=== PATIENT | female | born 1965 | race Caucasian/White ===

== ENCOUNTER 2017-02-03 23:00 | Inpatient (IN) | payer OTHER ==
--- NOTE | ~2017-02-03 | PN ---
Unit #: [id number] #: [id number] Patient: KAYLAN CHUNG [id number] [facility] [address] [place] [address] [id number] I MR#: [id number] NAME: KAYLAN CHUNG ROOM: [facility] Age: 51 Sex: F Admission Date: 02/04/2017 : 1965 Attending Physician: Krista Rose M.D. Admitting Physician: Krista Rose M.D. Primary Care Physician: Jaspal Gustafson PROGRESS NOTES DATE 02/08/2017 DISCUSSION Ms. Chung is a 51-year-old white female who was seen today and chart was reviewed and case was discussed with the staff. She has been anxious, withdrawn though has not shown any agitation, irritability and has been cooperative with treatment recommendations as she has been taking medications and tolerating them fairly well with no reported side effects. MENTAL STATUS EXAMINATION Middle-aged white female who was casually dressed with fair personal hygiene and appears to be in no acute distress or discomfort. She was awake and alert with intact orientation. Her mood was anxious with congruent affect. She denies any suicidal or homicidal ideation. Her insight and judgement remains slightly impaired. TREATMENT PLAN 1. Will continue on current treatment protocol and will monitor her response and make further adjustments as needed. 2. Will continue to follow up. Dictated by... Krista Rose M.D. IAA/amauri TD: 02/08/2017 19:46 JOB #: [id number] [facility] PROGRESS NOTES Page 1 of 1 X Krista Rose MD PROGRESS NOTE
--- NOTE | ~2017-02-03 | HP ---
Unit #: [id number] #: [id number] Patient: KAYLAN BECKER [id number] [place] [address] [id number] I MR#: [id number] NAME: KAYLAN BECKER ROOM: P177 Age: 51 Sex: F Admission Date: 02/04/2017 : 1965 Attending Physician: Krista Rose M.D. Admitting Physician: Krista Rose M.D. Primary Care Physician: Jose A Townsend M.D. HISTORY AND PHYSICAL HISTORY OF PRESENT ILLNESS Kaylan is a 51 year old admitted to [facility] because of her continued abuse of alcohol. PAST MEDICAL HISTORY 1. Long history of alcohol abuse. 2. History of illicit substance abuse. 3. History of withdrawal seizures, benzodiazepines. PAST SURGICAL HISTORY 1. Right foot. 2. x2. 3. Tummy tuck. ALLERGIES Antihistamines. SOCIAL HISTORY Smokes one pack per day. Drinks alcohol on occasion. Has a history of illicit substance abuse to include snorting amphetamines and abusing opioids and benzodiazepines. FAMILY HISTORY Medically noncontributory. REVIEW OF SYSTEMS CONSTITUTIONAL: No fever or chills. HEENT: Denies any sore throat, ear pain or runny nose. CARDIOVASCULAR: Denies chest pain, irregular heart rhythm or palpitations. CHEST: Denies shortness of breath or cough. No hemoptysis. GASTROINTESTINAL: Denies nausea, vomiting, diarrhea or chronic constipation. ENDOCRINE: Denies history of increased thirst or urination. No recent significant weight loss or gain. GENITOURINARY: Denies dysuria, frequency, or hematuria. SKIN: Denies any rashes. HEMATOLOGIC: Denies history of increased bleeding or bruising. MUSCULOSKELETAL: Denies any hot, swollen joints. No generalized muscle pain. NEUROLOGIC: Denies problems with vision or speech. No frequent, severe headaches. No numbness, tingling or weakness in any extremities. Denies loss of bladder or bowel control. Unit #: [id number] #: [id number] Patient: KAYLAN BECKER CURRENT MEDICATIONS 1. Detox protocol 2. Remeron 15 mg q.h.s. 3. BuSpar 10 mg b.i.d. 4. Aspirin 81 mg q day PHYSICAL EXAMINATION GENERAL: Alert, appearing much much older than her stated age of 51, no apparent distress. VITAL SIGNS: Blood pressure 100/66, heart rate 80, respirations 16, temperature 98.6. WEIGHT: 133 pounds. HEIGHT: 5'4". SKIN: Warm and dry without rash or lesion. HEENT: Normocephalic. TMs not viewed. Oral and nasal passages clear. Conjunctivae clear. Pupils equal, round and reactive to light and accommodation. Extraocular movements intact. NECK: Supple without lymphadenopathy or thyromegaly. HEART: Regular rate and rhythm without murmur. LUNGS: Clear. ABDOMEN: Soft, nontender. : Not done. EXTREMITIES: No evidence of cyanosis, clubbing or edema. Moves all extremities without focal deficit. NEUROLOGICAL: Grossly within normal limits. Cranial Nerves: II: Visual temple are intact. III, IV AND : Extraocular movements are intact. Pupils are equal, round and reactive to light. V: Facial sensation is grossly normal. VII: Facial movements and expression are normal. VIII: Auditory acuity grossly intact. IX, X: Uvula is midline. Phonation is normal. XI: Patient shrugs shoulders and turns head normally. XII: Tongue protrudes in the midline. Sensory and Motor Function: Sensory and motor sensation is grossly normal. Motor: moves all extremities well. Coordination: Gait is normal. Deep Tendon Reflexes: Intact. IMPRESSION Psychiatric admission RECOMMENDATIONS PSYCHIATRIC: Per psychiatrist. MEDICAL: I see no contraindications to participating in facility's activities. MEDICAL PROGNOSIS Good. MEDICAL CONDITION Stable. Dictated by... Raquel KingANeel for Unit #: [id number] #: [id number] Patient: KAYLAN BECKER Jaspal Edwards/ann TD: 02/04/2017 21:08 JOB #: [id number] HISTORY AND PHYSICAL Page 1 of 1 X Mayra Zacarias HISTORY AND PHYSICAL
--- NOTE | ~2017-02-03 | PA ---
Unit #: [id number] #: [id number] Patient: KAYLAN CHUNG [id number] [facility] [address] [place] [address] [id number] I MR#: [id number] NAME: KAYLAN CHUNG ROOM: P177 Age: 51 Sex: F Admission Date: 02/04/2017 : 1965 Date of Assessment: 02/04/2017 Attending Physician: Krista Rose M.D. Admitting Physician: Krista Rose M.D. Primary Care Physician: Jose A Townsend M.D. PSYCHIATRIC ASSESSMENT DATE OF SERVICE 02/04/2017. IDENTIFYING DATA Ms. Chung is a 51-year-old white female, who is a resident of [place], [place], and was self-referred to the hospital on voluntary basis. CHIEF COMPLAINT "I'm having a nervous breakdown." The patient reports that she is living with a male who took the medication. HISTORY OF PRESENT ILLNESS Ms. Chung is a 51-year-old white female with history of mood disorder, who was brought to the hospital stating that she is having a nervous breakdown and that she is living with a male who took her medications away from her and the patient reports witnessing her being killed in front of her approximately 4 years ago and reports suicidal ideation, reports she wants to drown herself because "I'm trying to not feeling good." She also stated "I'm losing my mind." The patient reports that she is not sleeping and just wants to sleep and reports taking EPO out on individual with whom she was staying with and reports increasing depression, anxiety, agitation, irritability, and was seen to be quite histrionic and animated and was difficult to be interrupted and was moving from one subject to another and that she was noticed to be coming out and talking to other patients on the unit and telling her stories and trying to get sympathies and has been telling everyone that she used to have a beautiful house and a floor where then she used to have everything and then she ended up losing everything and now tells me that she needs to have a Klonopin or Ativan to calm her nerves down and that as soon as she takes it within minutes, she calms down and has apparently become addicted to benzodiazepine, however, she was reporting suicidal ideations with a plan and as such, recommendation for inpatient level of care for safety and stabilization was made. SUBSTANCE ABUSE HISTORY The patient does have extensive history of substance abuse and reports starting with cannabis at the age of 12 and since then, she has done cannabis, alcohol, methamphetamines, and benzodiazepines, and has done methadone in the past as well. However, more recently it appears that she has been using quite a bit of benzodiazepines and it was noticed that she was unable to answer multiple questions, asked about substance abuse and her blood alcohol level was 0 at the time of presentation. She admitted Unit #: [id number] #: [id number] Patient: KAYLAN CHUNG to using one line of methamphetamine in the last 8 hours and reports being prescribed Klonopin and has not been able to take within the last few days and previous assessment indicate that she has history of alcohol use and reports cirrhosis of the liver which the patient denies at current assessment and was unclear about her sobriety, but at the same time was exhibiting significant withdrawal symptoms. PAST PSYCHIATRIC HISTORY The patient has history of multiple inpatient chemical dependency and psychiatric treatment as [facility], at [facility], and has been to [facility] for chemical dependency rehab level of care. However, currently she does not appear to be seeing a psychiatrist, though her primary care physician has been prescribing her Klonopin up to t.i.d. PAST MEDICAL HISTORY The patient's medical history is significant for hepatitis C, history of seizures, coronary artery disease. ALLERGIES Antihistamines. PERSONAL AND SOCIAL HISTORY A 51-year-old white female, who reports that she is single, unemployed, and has unstable housing. MENTAL STATUS EXAMINATION Middle-aged white female who was casually dressed with fair personal hygiene, appears to be in no acute distress or discomfort. She was awake and alert on interaction with intact orientation. Her mood was anxious and depressed with a congruent affect. Her speech was slow and restricted in content. Her thought processes were disorganized with some looseness of associations and suicidal ideations. Her insight and judgment remain significantly impaired. DIAGNOSTIC IMPRESSION Psychiatric: Major depressive disorder, recurrent, moderate, without psychotic features; benzodiazepine dependence, moderate; alcohol abuse, moderate; methamphetamine abuse, moderate. Medical: Hepatitis C, history of seizures, coronary artery disease. Stressors: Moderate psychosocial stressors. TREATMENT PLAN 1. The patient has presented with history of mood disorder and substance abuse and has been decompensating and will need inpatient hospitalization for safety and stabilization. We will start her back on her home medications. We will adjust the medications and monitor response. 2. Supportive therapy was provided to the patient. 3. Safe, structured, and nourishing environment will be provided. ESTIMATED LENGTH OF STAY 5 to 7 days. ABILITY TO HELP SELF Limited. WILLINGNESS TO HELP SELF The patient appears to be willing to help self. Unit #: [id number] #: [id number] Patient: KAYLAN CHUNG 1. Communicative. 2. Cooperative. PROBLEMS 1. Chronic dysphoric symptoms. 2. Poor social support system. DISCHARGE CRITERIA This will be contingent upon the patient's ability to show resolution of her depression and anxiety and her ability to stay safe and sober, particularly after discharge from the hospital. Dictated by... Jaspal Mayfield/kelly TD: 02/05/2017 00:55 JOB #: [id number] PSYCHIATRIC ASSESSMENT Page 1 of 1 X Krista Rose MD PSYCHIATRIC ASSESSMENT
--- NOTE | ~2017-02-03 | DS ---
Unit #: [id number] #: [id number] Patient: KAYLAN CHUNG [id number] [facility] [place] [address] [id number] I MR#: [id number] NAME: KAYLAN CHUNG ROOM: P177 Age: 51 Sex: F Admission Date: 02/04/2017 : 1965 Discharge Date: 02/10/2017 Attending Physician: Krista Rose M.D. Primary Care Physician: Jose A Townsend M.D. DISCHARGE SUMMARY IDENTIFYING DATA Ms. Chung is a 51-year-old white female, who is a resident of [place], [place], and was self-referred to the hospital on a voluntary basis. DISCHARGE DIAGNOSES Psychiatric: Major depressive disorder, recurrent, moderate, without psychotic features; benzodiazepine dependence, moderate; alcohol abuse, moderate; methamphetamine abuse, moderate. Medical: History of hepatitis C, history of seizure disorder, coronary artery disease. Stressors: Moderate psychosocial stressors. HISTORY OF PRESENT ILLNESS Please see initial psychiatric evaluation for details. PAST PSYCHIATRIC HISTORY Please see initial psychiatric evaluation for details. PAST MEDICAL HISTORY Please see initial psychiatric evaluation for details. HOSPITAL COURSE The patient was admitted to the adult chemical [facility] and was oriented to the hospital environment. Routine p.r.n. medications were initiated, and she was started on the detox protocol and was also started on a combination of Remeron and BuSpar to help with depression and was closely monitored. She was taking the medications regularly and was tolerating them fairly well and was able to show a decent and therapeutic response and was willing to continue treatment on an outpatient basis and as such, it was decided that she will be discharged home and will continue treatment on an outpatient basis. DISCHARGE MEDICATIONS Remeron 15 mg at bedtime for depression and BuSpar 10 mg b.i.d. for anxiety. DISCHARGE CONDITION Stable. PROGNOSIS Fair. Unit #: [id number] #: [id number] Patient: KAYLAN CHUNG Dictated by... Krista Rose M.D. IAA/hughl TD: 02/10/2017 06:35 JOB #: [id number] DISCHARGE SUMMARY Page 1 of 1 X Krista Rose MD DISCHARGE SUMMARY
--- NOTE | ~2017-02-03 | PN ---
Unit #: [id number] #: [id number] Patient: KAYLAN CHUNG [id number] [facility] [address] [place] [address] [id number] MR#: [id number] NAME: KAYLAN CHUNG ROOM: [facility] Age: 51 Sex: F Admission Date: 02/04/2017 : 1965 Attending Physician: Krista Rose M.D. Admitting Physician: Krista Rose M.D. Primary Care Physician: Jaspal Gustafson PROGRESS NOTES DATE February 09, 2017 DISCUSSION Ms. Chung is a 51-year-old white female, who was seen today and chart was reviewed and the case was discussed with the staff. The patient has been anxious, withdrawn, and rather seclusive to herself. Meanwhile, she has been cooperative with the treatment recommendations and has been taking the medications and tolerating them fairly well with no reported side effects. MENTAL STATUS EXAMINATION Middle-aged white female, who was casually dressed with fair personal hygiene, and appears to be in no acute distress or discomfort. She was awake and alert on interaction with intact orientation. Her mood was anxious with a congruent affect. She denies any suicidal or homicidal ideations, and also denies any auditory or visual hallucinations. Her insight and judgment remain slightly impaired. TREATMENT PLAN 1. We will continue her on her current medications and treatment protocol, and will monitor her response to the medications, and make further adjustments as needed. 2. We will continue to followup. Dictated by... Jaspal Mayfield/ole TD: 02/10/2017 09:03 JOB #: [id number] Unit #: [id number] #: [id number] Patient: KAYLAN CHUNG PROGRESS NOTES Page 1 of 1 X Krista Rose MD X PROGRESS NOTE
--- NOTE | ~2017-02-03 | PN ---
Unit #: [id number] #: [id number] Patient: KAYLAN CHUNG [id number] [facility] [address] [place] [address] [id number] MR#: [id number] NAME: KAYLAN CHUNG ROOM: [facility] Age: 51 Sex: F Admission Date: 02/04/2017 : 1965 Attending Physician: Krista Rose M.D. Admitting Physician: Krista Rose M.D. Primary Care Physician: Jaspal Gustafson PROGRESS NOTES DATE February 07, 2017 DISCUSSION Ms. Chung is a 51-year-old white female, who was seen today and chart was reviewed and the case was discussed with the staff. The patient has been anxious, withdrawn, and rather seclusive to herself. Meanwhile, she has been cooperative with the treatment recommendations and she has been taking the medications and tolerating them fairly well. MENTAL STATUS EXAMINATION Middle-aged white female, who was casually dressed with fair personal hygiene and appears to be in no acute distress or discomfort. The patient was awake and alert with impaired attention and concentration. Her mood was anxious with a congruent affect. The patient denies any suicidal or homicidal ideations. Her insight and judgment remain slightly impaired. TREATMENT PLAN 1. We will continue her on her current medications and treatment protocol, and will monitor her response to the medications, and make further adjustments as needed. 2. We will continue to followup. Dictated by... Jaspal Mayfield/ole TD: 02/07/2017 08:50 JOB #: [id number] Unit #: [id number] #: [id number] Patient: KAYLAN CHUNG PROGRESS NOTES Page 1 of 1 X Krista Rose MD PROGRESS NOTE
--- NOTE | ~2017-02-03 | PN ---
Unit #: [id number] #: [id number] Patient: KAYLAN CHUNG [id number] [facility] [address] [place] [address] [id number] I MR#: [id number] NAME: KAYLAN CHUNG ROOM: [facility] Age: 51 Sex: F Admission Date: 02/04/2017 : 1965 Attending Physician: Krista Rose M.D. Admitting Physician: Krista Rose M.D. Primary Care Physician: Jaspal Gustafson PROGRESS NOTES DATE 02/05/2017 DISCUSSION Ms. Chung is a 51-year-old white female with mood disorder and substance abuse who was seen today and chart was reviewed and case was discussed with the staff. She remains anxious, withdrawn and complaining of pain on her lower back. Meanwhile, she has been taking medications and tolerating them fairly well with no reported side effects. MENTAL STATUS EXAMINATION Middle-aged white female who was casually dressed with fair personal hygiene and appears to be in no acute distress or discomfort. She was awake and alert on interaction with intact orientation. Her mood was anxious with congruent affect. She denies any suicidal or homicidal ideation. Her insight and judgement remains slightly impaired. TREATMENT PLAN 1. Will continue on current medications and treatment protocol. Will monitor her response to the medications and make further adjustments as needed. 2. Will continue to follow up. Dictated by... Jaspal Mayfield/amauri TD: 02/05/2017 19:45 JOB #: [id number] Unit #: [id number] #: [id number] Patient: KAYLAN CHUNG PROGRESS NOTES Page 1 of 1 X Krista Rose MD X PROGRESS NOTE
--- NOTE | ~2017-02-03 | PN ---
Unit #: [id number] #: [id number] Patient: KAYLAN CHUNG [id number] [facility] [address] [place] [address] [id number] I MR#: [id number] NAME: KAYLAN CHUNG ROOM: [facility] Age: 51 Sex: F Admission Date: 02/04/2017 : 1965 Attending Physician: Krista Rose M.D. Admitting Physician: Krista Rose M.D. Primary Care Physician: Jaspal Gustafson PROGRESS NOTES DATE February 06, 2017 DISCUSSION Ms. Chung is a 51-year-old white female, who was seen today and chart was reviewed and the case was discussed with the staff. The patient has been anxious, withdrawn, and rather seclusive to herself and describes herself to be in distress and discomfort as she goes through detox. Meanwhile, she has been taking the medications and tolerating them fairly well with no reported side effects. MENTAL STATUS EXAMINATION Middle-aged white female, who was casually dressed with fair personal hygiene and appears to be in no acute distress or discomfort. The patient was awake and alert with intact orientation. Her mood is anxious with a congruent affect. The patient denies any suicidal or homicidal ideations, and also denies any auditory or visual hallucinations. Her insight and judgment remain slightly impaired. TREATMENT PLAN 1. We will continue her on her current medications and treatment protocol, and will monitor her response to the medications, and make further adjustments as needed. 2. We will continue to followup. Dictated by... Jaspal Mayfield/ole TD: 02/06/2017 09:13 JOB #: [id number] Unit #: [id number] #: [id number] Patient: KAYLAN CHUNG PROGRESS NOTES Page 1 of 1 X Krista Rose MD PROGRESS NOTE
--- NOTE | ~2017-02-03 | CO ---
Unit #: [id number] #: [id number] Patient: KAYLAN BECKER [id number] [place] [address] [id number] I MR#: [id number] NAME: KAYLAN BECKER ROOM: [facility] Age: 51 Sex: F Admission Date: 02/04/2017 : 1965 Attending Physician: Krista Rose M.D. Primary Care Physician: Jose A Townsend M.D. Consultation Date: 02/05/2017 CONSULTATION REPORT SUBJECTIVE Evelyn is a 51 year old who complained of low back pain radiating into her left side. She denies any numbness, tingling or weakness in either of her extremities. She denies any injury. OBJECTIVE GENERAL: Alert, well-nourished, in no apparent distress. VITAL SIGNS: Blood pressure 120/70, heart rate 80, respirations 16, temperature 98.6. BACK: Negative CVA tenderness. Full range of motion at her hips and waist. EXTREMITIES: No evidence of cyanosis, clubbing or edema. Moves all without focal deficit. NEURO: Grossly intact. ASSESSMENT Low back pain. PLAN Tylenol p.r.n. Dictated by... Mayra Zacarias PEdnaA.-C. for Jaspal Edwards/amauri TD: 02/13/2017 20:31 JOB #: [id number] CONSULTATION REPORT Page 1 of 1 X Mayra Zacarias CONSULTATION REPORT
[2017-02-04 13:48] LABS: ALBUMIN SERUM 3.8 g/dL (3.5-5.0); BILIRUBIN,TOTAL 1.6 mg/dL (0.2-2.0); CALCIUM SERUM 9.1 mg/dL (8.4-10.2); CREATININE SERUM 0.5 mg/dL (0.6-1.4); GLOM FILT RATE Estimated 110.5 mL/min (>60); POTASSIUM 3.3 mmol/L (3.5-5.1); PROTEIN TOTAL SERUM 6.6 g/dL (6.0-8.3)
[2017-02-04 13:51] LABS: BASOPHIL# 0.1 X10e3 (0-0.3); BASOPHIL% 1.3 % (0-2.5); EOSINOPHIL# 0.3 X10e3 (0-0.7); EOSINOPHIL% 4.8 % (0.0-7.0); HEMATOCRIT 42.3 % (35.0-45.0); HEMOGLOBIN 14.2 gm/dL (12.0-16.0); LYMPHOCYTE# 2.2 X10e3 (1.0-3.5); LYMPHOCYTE% 33.6 % (17.0-45.0); MEAN CELL VOLUME 105.3 FL (83-96); MEAN CORPUSCULAR HEMOGLOBIN 35.3 PG (28-34); MEAN CORPUSCULAR HGB CONC 33.5 g/dL (30-36); MEAN PLATELET VOLUME 9.4 FL (6.5-11.5); MONOCYTE# 0.7 X10e3 (0-1.0); MONOCYTE% 10.9 % (3.0-12.0); NEUTROPHIL# 3.2 X10e3 (1.5-7.1); NEUTROPHIL% 49.4 % (40-75); PLATELET COUNT 154 X10e3 (140-420); RED BLOOD COUNT 4.02 X10e (3.90-5.30); RED CELL DISTRIBUTION WIDTH 13.2 % (11.0-15.5); WHITE BLOOD COUNT 6.5 X10e3 (4.0-10.5)
[2017-02-04 13:55] LABS: DIFF IND YES
[2017-02-04 15:14] LABS: ANISOCYTOSIS SL; PLATELET ESTIMATE NORMAL (NORMAL)
[2017-02-05 12:26] LABS: URINE APPEARANCE CLEAR; URINE BILIRUBIN NEG (NEG); URINE BLOOD NEG (NEG); URINE COLOR YELLOW; URINE GLUCOSE NEG (NEG); URINE KETONE NEG (NEG); URINE LEUKOCYTE ESTERASE NEG (NEG); URINE NITRATE NEG (NEG); URINE PH 5.5 (5-8); URINE PROTEIN NEG (NEG); URINE SPECIFIC GRAVITY 1.016 (1.003-1.035)
[2017-02-05 12:40] LABS: AMPHETAMINE POS (NEG); BARBITURATES NEG (NEG); BENZODIAZEPINES POS (NEG); COCAINE NEG (NEG); MARIJUANA NEG (NEG); OPIATES NEG (NEG); TRICYCLIC ANTIDEPRESSANTS NEG (NEG); U METHADONE NEG (NEG)
== END 2017-02-10 09:28 | DRG 885 ==
LOC: P1E 02-04 01:45
PROVIDERS: Psychiatry & Neurology Psychiatry
PROC: HZ2ZZZZ Detoxification Services for Substance Abuse Treatment (ICD-10-PCS; principal; 2017-02-04)
DX: F33.1 Major depressive disorder, recurrent, moderate (principal); F13.20 Sedative, hypnotic or anxiolytic dependence, uncomplicated; F15.20 Other stimulant dependence, uncomplicated; F10.10 Alcohol abuse, uncomplicated; F17.210 Nicotine dependence, cigarettes, uncomplicated
CPT/HCPCS: 80053; 80307; 81003; 85025; 86592